=== PATIENT | female | born 1985 | race Caucasian/White ===

== ENCOUNTER 2017-02-16 06:08 | Emergency (ER) | payer SELFPAY ==
[~2017-02-16] VITALS: Ht 167.6 cm; Wt 70.0 kg
[~2017-02-16 06:08] MED LIST: SUDAFE1 OR
[2017-02-16 07:07] LABS: URINE BILIRUBIN - DIPSTICK NEGATIVE (NEGATIVE); URINE BLOOD DIPSTICK SMALL (NEGATIVE); URINE CLARITY CLEAR; URINE COLOR YELLOW; URINE GLUCOSE - DIPSTICK 100 mg/dL (NEGATIVE); URINE KETONE TRACE mg/dL (NEGATIVE); URINE LEUK ESTERASE NEGATIVE (NEGATIVE); URINE NITRITE - DIPSTICK NEGATIVE (Negative); URINE PROTEIN - DIPSTICK TRACE mg/dL (NEG-TRACE); URINE SPECIFIC GRAVITY 1.025
[2017-02-16 07:12] LABS: BARBITURATES NEGATIVE (NEGATIVE); COCAINE NEGATIVE (NEGATIVE); METHADONE NEGATIVE (NEGATIVE); OXCYCODONE NEGATIVE (NEGATIVE); TETRAHYDROCANNABIONOL NEGATIVE (NEGATIVE); TRICYLIC ANTIDEPRESSANTS NEGATIVE (NEGATIVE)
[2017-02-16 07:17] LABS: URINE AMORPH SEDIMENT FEW hpf (NONE-FEW); URINE BACTERIA FEW hpf; URINE MUCUS MANY hpf (NONE-FEW); URINE WBC 0-2 WBC/hpf (0-5)
[2017-02-16 07:18] LABS: URINE SQUAMOUS EPITHELIAL CELL FEW EPI/hpf (0-FEW)
[2017-02-16] MEDS ORDERED: COMPAZINE10 MG PO ×2 (08:22→08:23)
[2017-02-16 08:30] VITALS: BP 120/60
== END 2017-02-16 08:48 | disposition home or self-care (01) | DRG 103 ==
LOC: ED 06:08
PROVIDERS: Emergency Medicine
DX: R51 Headache (principal); F15.10 Other stimulant abuse, uncomplicated

== ENCOUNTER 2018-03-03 18:49 | Emergency (ER) | payer SELFPAY ==
[~2018-03-03] VITALS: Ht 167.6 cm; Wt 84.0 kg
[~2018-03-03 18:49] MED LIST changes: +COMPAZINE10 MG PO
[2018-03-03 19:22] LABS: HEMATOCRIT 38.7 % (37.0-47.0); HEMOGLOBIN 12.9 g/dl (12.0-16.0); IMMATURE GRANULOCYTES 0.3 % (0.0-1.0); MEAN CORPUSCULAR HGB 28.3 pG CALC (26.0-32.0); MEAN CORPUSCULAR HGB CONC 33.3 g/L CALC (32.0-36.0); NEUT# 4.02 thou/uL (2.00-7.15); RED BLOOD COUNT 4.56 mill/uL (4.20-5.60); RED CELL DISTRI WIDTH 13.4 % (11.5-15.5)
[2018-03-03 19:25] LABS: MEAN CELL VOLUME 84.9 fL CALC (80.0-100.0)
[2018-03-03 19:26] LABS: URINE BILIRUBIN - DIPSTICK NEGATIVE (NEGATIVE); URINE BLOOD DIPSTICK NEGATIVE (NEGATIVE); URINE COLOR YELLOW; URINE GLUCOSE - DIPSTICK NEGATIVE (NEGATIVE); URINE KETONE NEGATIVE (NEGATIVE); URINE LEUK ESTERASE TRACE (NEGATIVE); URINE NITRITE - DIPSTICK NEGATIVE (Negative); URINE PROTEIN - DIPSTICK 30 mg/dL (NEG-TRACE); URINE SPECIFIC GRAVITY >=1.030; URINE UROBILINOGEN - DIPSTICK 0.2 E.U./dL (0.2)
[2018-03-03 19:28] LABS: URINE CLARITY SL CLOUDY
[2018-03-03 19:35] LABS: BARBITURATES NEGATIVE (NEGATIVE); COCAINE NEGATIVE (NEGATIVE); METHADONE NEGATIVE (NEGATIVE); OXCYCODONE NEGATIVE (NEGATIVE); TETRAHYDROCANNABIONOL NEGATIVE (NEGATIVE); TRICYLIC ANTIDEPRESSANTS NEGATIVE (NEGATIVE)
[2018-03-03 19:38] LABS: URINE MUCUS MODERATE hpf (NONE-FEW); URINE SQUAMOUS EPITHELIAL CELL FEW EPI/hpf (0-FEW)
[2018-03-03 19:39] LABS: ALBUMIN 3.9 g/dL (3.2-5.0); ALKALINE PHOSPHATASE 56 u/l (38-126); ANION GAP 11 (6-22 (CALC)); BILIRUBIN, TOTAL 0.3 mg/dL (0.0-1.4); BUN 10 mg/dL (7-17); BUN/CREATININE RATIO 15 (12-20 (CALC)); CARBON DIOXIDE 24 mmol/l (22-30); CHLORIDE 107 mmol/l (95-108); CREATININE 0.7 mg/dL (0.5-1.0); GFR > 60 ML/MIN (>=60 (CALC)); GFR FOR AFR.AMER. > 60 ML/MIN (>=60 (CALC)); MAGNESIUM 2.2 mg/dL (1.6-2.3); POTASSIUM 3.6 mmol/l (3.5-5.1); SGOT/AST 15 u/l (14-36); SGPT/ALT 29 u/l (9-52); SODIUM 138 mmol/l (137-146); TOTAL PROTEIN 6.9 g/dL (6.3-8.2)
[2018-03-03 19:41] LABS: ETHYL ALCOHOL 0 mg/dl (0-30)
[2018-03-03] MEDS ORDERED: CIPROFLOXACN500 MG PO (22:37)
[2018-03-03 22:57] VITALS: BP 116/55
== END 2018-03-03 22:45 | DRG 918 ==
LOC: ED 18:49
PROVIDERS: Emergency Medicine
DX: T42.4X2A Poisoning by benzodiazepines, intentional self-harm, initial encounter (principal); N39.0 Urinary tract infection, site not specified; G93.2 Benign intracranial hypertension; F17.210 Nicotine dependence, cigarettes, uncomplicated

== ENCOUNTER 2020-01-15 | Emergency (ER) | payer SELFPAY ==
[~2020-01-15] MED LIST changes: +CIPROFLOXACN500 MG PO
[2020-01-15 14:51] LABS: URINE BLOOD DIPSTICK LARGE (NEGATIVE); URINE GLUCOSE - DIPSTICK NEGATIVE (NEGATIVE); URINE KETONE 15 mg/dL (NEGATIVE); URINE LEUK ESTERASE TRACE (NEGATIVE); URINE PH 5.5 (4.5-8.0); URINE PROTEIN - DIPSTICK 100 mg/dL (NEG-TRACE); URINE SPECIFIC GRAVITY >=1.030
[2020-01-15 14:53] LABS: URINE BILIRUBIN - DIPSTICK MODERATE (NEGATIVE); URINE COLOR DK. YELLOW; URINE NITRITE - DIPSTICK POSITIVE (Negative)
[2020-01-15 14:57] LABS: URINE BACTERIA FEW hpf; URINE RBC TNTC RBC/hpf (0-5); URINE SQUAMOUS EPITHELIAL CELL FEW EPI/hpf (0-FEW)
[2020-01-15] MEDS ORDERED: CEPHALEXIN500 M1 PO (15:16)
== END 2020-01-15 15:38 | disposition home or self-care (01) | DRG 690 ==
PROVIDERS: Family Medicine
DX: N39.0 Urinary tract infection, site not specified (principal); F17.200 Nicotine dependence, unspecified, uncomplicated

== ENCOUNTER 2021-03-18 07:23 | Emergency (ER) | payer SELFPAY ==
[~2021-03-18] VITALS: Ht 170.2 cm; Wt 88.0 kg
[~2021-03-18 07:23] MED LIST changes: +CEPHALEXIN500 M1 PO
[2021-03-18] MEDS ORDERED: TOBREX OPTH5 ML/BTL OD (07:39)
[2021-03-18 07:50] VITALS: BP 137/67
== END 2021-03-18 07:50 | disposition home or self-care (01) | DRG 125 ==
LOC: ED 07:23
DX: H10.9 Unspecified conjunctivitis (principal); F17.200 Nicotine dependence, unspecified, uncomplicated

== ENCOUNTER 2021-07-04 20:14 | Emergency (ER) | payer SELFPAY ==
[~2021-07-04] VITALS: Ht 170.2 cm; Wt 90.0 kg
[~2021-07-04 20:14] MED LIST changes: +TOBREX OPTH5 ML/BTL OD
[2021-07-04 22:06] LABS: HEMATOCRIT 39.9 % (37.0-47.0); HEMOGLOBIN 12.9 g/dl (12.0-16.0); IMMATURE GRANULOCYTES 0.2 % (0.0-5.0); MEAN CELL VOLUME 85.8 fL CALC (80.0-100.0); MEAN CORPUSCULAR HGB 27.7 pG CALC (26.0-32.0); MEAN CORPUSCULAR HGB CONC 32.3 g/dL CAL (32.0-36.0); NEUT# 13.46 thou/uL (2.00-7.15); RED BLOOD COUNT 4.65 mill/uL (4.20-5.60); RED CELL DISTRI WIDTH 14.3 % (11.5-15.5); URINE BILIRUBIN - DIPSTICK NEGATIVE (NEGATIVE); URINE BLOOD DIPSTICK NEGATIVE (NEGATIVE); URINE COLOR YELLOW; URINE GLUCOSE - DIPSTICK NEGATIVE (NEGATIVE); URINE KETONE TRACE mg/dL (NEGATIVE); URINE LEUK ESTERASE TRACE (NEGATIVE); URINE PH 6.5 (4.5-8.0); URINE PROTEIN - DIPSTICK TRACE mg/dL (NEG-TRACE); URINE UROBILINOGEN - DIPSTICK 0.2 E.U./dL (0.2)
[2021-07-04 22:08] LABS: URINE NITRITE - DIPSTICK NEGATIVE (Negative)
[2021-07-04 22:24] LABS: AMYLASE 44 u/l (30-110); ANION GAP 12 (6-22 (CALC)); BUN 6 mg/dL (7-17); BUN/CREATININE RATIO 10 (12-20 (CALC)); CARBON DIOXIDE 27 mmol/l (22-30); CHLORIDE 101 mmol/l (95-108); CREATININE 0.6 mg/dL (0.5-1.0); GFR > 60 ML/MIN (>=60 (CALC)); GFR FOR AFR.AMER. > 60 ML/MIN (>=60 (CALC)); LIPASE 30 u/l (23-300); SGOT/AST 18 u/l (14-36); SODIUM 135 mmol/l (137-146); TOTAL PROTEIN 7.4 g/dL (6.3-8.2)
[2021-07-04 22:37] LABS: ALKALINE PHOSPHATASE 86 u/l (38-126); BILIRUBIN, TOTAL 0.7 mg/dL (0.0-1.4)
[2021-07-05 02:49] VITALS: BP 153/79
== END 2021-07-05 02:49 | disposition short-term general hospital (02) | DRG 392 ==
LOC: ED 20:14
PROVIDERS: Family Medicine
DX: R10.13 Epigastric pain (principal); R10.33 Periumbilical pain; R93.5 Abnormal findings on diagnostic imaging of other abdominal regions, including retroperitoneum; F17.210 Nicotine dependence, cigarettes, uncomplicated
CPT/HCPCS: Q9967

== ENCOUNTER 2021-09-28 20:34 | Emergency (ER) | payer SELFPAY ==
[~2021-09-28] VITALS: Ht 170.2 cm; Wt 91.0 kg
[2021-09-28] MEDS ORDERED: TRAMADOL HCL50 MG PO (21:48)
[2021-09-28] MEDS ORDERED: MOTRIN800 MG PO (21:48)
[2021-09-28 22:42] VITALS: BP 136/84
== END 2021-09-28 22:50 | disposition home or self-care (01) | DRG 563 ==
LOC: ED 20:34
DX: S52.124A Nondisplaced fracture of head of right radius, initial encounter for closed fracture (principal); F17.200 Nicotine dependence, unspecified, uncomplicated; V18.0XXA Pedal cycle driver injured in noncollision transport accident in nontraffic accident, initial encounter; Y93.55 Activity, bike riding

== ENCOUNTER 2024-06-21 22:05 | Emergency (ER) | payer SELFPAY ==
[~2024-06-21] VITALS: Ht 175.3 cm; Wt 104.0 kg
[~2024-06-21 22:05] MED LIST changes: +MOTRIN800 MG PO; +TRAMADOL HCL50 MG PO
[2024-06-21] MEDS ORDERED: PYRIDIUM200 MG PO (22:26)
[2024-06-21] MEDS ORDERED: BACTRIM DS1 TAB PO (22:26)
[2024-06-21] MEDS ORDERED: PHENAZOPYRIDINE HCL 100 MG/TAB PO ONE (22:30)
[2024-06-21 22:40] LABS: URINE BLOOD DIPSTICK Large (NEGATIVE); URINE COLOR Yellow; URINE GLUCOSE - DIPSTICK Negative (NEGATIVE); URINE KETONE Trace mg/dL (NEGATIVE); URINE LEUK ESTERASE Trace (NEGATIVE); URINE NITRITE - DIPSTICK Positive (Negative); URINE PH 5.5 (4.5-8.0); URINE PROTEIN - DIPSTICK 100 mg/dL (NEG-TRACE); URINE SPECIFIC GRAVITY >=1.030; URINE UROBILINOGEN - DIPSTICK 0.2 E.U./dL (0.2)
[2024-06-21 22:46] LABS: URINE RBC 50-100 RBC/hpf (0-5)
[2024-06-21 22:48] LABS: URINE BACTERIA FEW hpf
[2024-06-21] MEDS ORDERED: PARAGARD IU (22:48)
[2024-06-21 22:49] LABS: URINE MUCUS FEW hpf (NONE-FEW); URINE SQUAMOUS EPITHELIAL CELL FEW EPI/hpf (0-FEW)
[2024-06-21] MEDS ORDERED: SULFAMETHOXAZOLE W/TRIMETHOPRI 1 COMBO TAB PO ONE (22:50)
[2024-06-21 23:08] VITALS: BP 156/90
== END 2024-06-21 23:08 | disposition home or self-care (01) | DRG 690 ==
LOC: ED 22:05
PROVIDERS: Emergency Medicine
DX: N39.0 Urinary tract infection, site not specified (principal); F17.200 Nicotine dependence, unspecified, uncomplicated